=== PATIENT | male | born 1980 | race Caucasian/White ===

== ENCOUNTER 2020-09-12 18:26 | Emergency (ER) ==
[2020-09-12 19:03] VITALS: BP 162/91
== END 2020-09-12 20:37 | disposition left against medical advice (07) ==
LOC: ER 18:26
DX: Z53.21 Procedure and treatment not carried out due to patient leaving prior to being seen by health care provider (principal)

== ENCOUNTER 2020-09-17 18:32 | Emergency (ER) | payer SELFPAY ==
[2020-09-17 19:23] LABS: ABSOLUTE BASOPHILS # (AUTO) 0.1 10^3/uL (0.0-0.2); ABSOLUTE EOSINOPHILS # (AUTO) 0.3 10^3/uL (0.0-0.6); ABSOLUTE LYMPHOCYTES (AUTO) 2.2 10^3/uL (0.5-4.7); BASOPHILS % (AUTO) 0.6 % (0-2); EOSINOPHILS % (AUTO) 2.2 % (0-6); HEMATOCRIT 43.1 % (37.9-51.0); LYMPHOCYTES % (AUTO) 16.4 % (13-45); MEAN CORPUSCULAR HEMOGLOBIN 31.8 pg (27.0-33.4); MEAN CORPUSCULAR HGB CONC 34.8 g/dL (32.0-36.0); MEAN CORPUSCULAR VOLUME 92 fl (80-97); MONOCYTES % (AUTO) 7.5 % (3-13); PLATELET COUNT 360 10^3/uL (150-450); RED BLOOD COUNT 4.71 10^6/uL (4.35-5.55); RED CELL DISTRIBUTION WIDTH 13.6 % (11.5-14.0); SEGMENTED NEUTROPHILS % (AUTO) 73.3 % (42-78); TOTAL CELLS COUNTED % (AUTO) 100 %; VENOUS BLOOD BASE EXCESS 1.9 mmol/L; VENOUS BLOOD HCO3 27.6 mmol/L (20-32); VENOUS BLOOD PCO2 46.6 mmHg (35-63); VENOUS BLOOD PH 7.39 (7.30-7.42); WHITE BLOOD COUNT 13.6 10^3/uL (4.0-10.5)
[2020-09-17 19:40] LABS: ALBUMIN 4.3 g/dL (3.5-5.0); ALKALINE PHOSPHATASE 100 U/L (38-126); ANION GAP 10 (5-19); ASPARTATE AMINO TRANSFERASE 28 U/L (17-59); BILIRUBIN,DIRECT 0.4 mg/dL (0.0-0.4); BILIRUBIN,TOTAL 0.5 mg/dL (0.2-1.3); BLOOD UREA NITROGEN 19 mg/dL (7-20); CALCIUM 9.9 mg/dL (8.4-10.2); CARBON DIOXIDE 26 mmol/L (22-30); CHLORIDE 103 mmol/L (98-107); GLUCOSE 100 mg/dL (75-110); POTASSIUM 4.8 mmol/L (3.6-5.0); TOTAL PROTEIN 7.4 g/dL (6.3-8.2)
--- NOTE | 2020-09-17 19:45 | RADIOLOGY REPORT (SQ) ---
EXAM DESCRIPTION: CHEST SINGLE VIEW IMAGES COMPLETED DATE/TIME: 09/17/2020 7:32 pm REASON FOR STUDY: sob COMPARISON: None. EXAM PARAMETERS: NUMBER OF VIEWS: One view. TECHNIQUE: Single frontal radiographic view of the chest acquired. RADIATION DOSE: NA LIMITATIONS: None. FINDINGS: LUNGS AND PLEURA: Vague patchy parenchymal opacities scattered through the lungs. Low yaa g volumes. MEDIASTINUM AND HILAR STRUCTURES: No masses. Contour normal. HEART AND VASCULAR STRUCTURES: Heart normal in size. Normal vasculature. BONES: No acute findings. HARDWARE: None in the chest. OTHER: No other significant finding. IMPRESSION: Pneumonia which is concerning for covid 19. TECHNICAL DOCUMENTATION: JOB ID: [id number] 2010 [employer]- All Rights Reserved Reading location - IP/workstation name: [email or web address]
[2020-09-17] MEDS ORDERED: ALBUTEROL SULFATE 0.083% NEB 2.5 MG/3 ML AMPUL NEB ONE (20:07)
[2020-09-17] MEDS ORDERED: DEXAMETHASONE SOD PHOS INJ 10 MG/1 ML VIAL IV ONE (20:07)
[2020-09-17] MEDS ORDERED: AZITHROMYCIN INJ 500 MG VIAL IV ONE (20:09)
[2020-09-17] MEDS ORDERED: NORMAL SALINE 1000 ML 1,000 ML IV ONE (20:11)
--- NOTE | 2020-09-17 20:13 | ER Document Report ---
ED General - General Chief Complaint: Shortness Of Breath Stated Complaint: SHORT OF BREATH,COUGH Time Seen by Provider: 09/17/20 19:23 Mode of Arrival: Ambulatory Information source: Patient Notes: Patient is a 40-year-old male coming in today with cough and shortness of breath that started about 8 days ago. No fevers or chills. No body aches. No fatigue. No loss of smell or taste. He has no chronic medical problems. He does smoke cigarettes. - Related Data Allergies/Adverse Reactions: Penicillins Adverse Reaction (Verified 09/17/20 19:19) Past Medical History - Social History Smoking Status: Current Every Day Smoker Family History: Reviewed & Not Pertinent Patient has homicidal ideation: No Review of Systems - Review of Systems Notes: Constitutional: No fevers. No chills. EENT: No eye redness. No eye pain. No ear pain. No sore throat. Cardiovascular: No chest pain. No palpitations. Respiratory: Positive for cough and shortness of breath Gastrointestinal: No abdominal pain. No nausea, vomiting, or diarrhea. Genitourinary: Atraumatic. No lesions. No pain. No discharge. Musculoskeletal: Atraumatic. No swelling. No deformities. Skin: No rash or lesions. Lymphatic: No swollen lymph nodes. Neurologic: No headache. No syncope. Psychiatric: No suicidal or homicidal ideation. Physical Exam - Vital signs Vitals: Temp Pulse Resp BP Pulse Ox 98.5 F 114 H 20 157/97 H 96 09/17/20 18:42 09/17/20 18:42 09/17/20 18:42 09/17/20 18:42 09/17/20 18:42 - Notes Notes: General: Well-developed, well-nourished. In no acute distress. Non-toxic appearing. Cardiac: Well-perfused. Regular rate and rhythm. No murmurs, rubs, or gallops. Pulmonary: No respiratory distress. No cyanosis. Bilateral lung mas are slightly diminished without wheezes or rhonchi Abdominal: Non-distended. Non-rigid. Bowels sounds are present in all four quadrants. No guarding or rebound. HEENT: Head is atraumatic. Conjunctivae not reddened. No tearing. PERRL. EOMI. Orbits atraumatic. No periorbital swelling or erythema. Oropharynx is without erythema, swelling, or exudates. Neck: Supple. No adenopathy. No meningismus. Dermatologic: Warm with good turgor. No rash. Atraumatic. Chest: Atraumatic. No chest wall tenderness to palpation. Musculoskeletal: Moves all extremities well. No range of motion deficits. no muscular or joint tenderness. No paraspinal muscle tenderness. no midline spinal tenderness or step-off. Genitourinary: Examination deferred Neurologic: No gross neurologic deficits. Psychiatric: Normal mood. Course - Re-evaluation Re-evalutation: 09/17/20 22:09 Patient feeling better after breathing treatments. Told him I believe that he will feel even better after dexamethasone takes effect. Chest x-ray is concerning for possible Covid. We will start him on Zithromax at home as well as metered-dose albuterol inhaler, and Robitussin with codeine cough syrup. Recommended that he get some zinc and vitamin D and follow the directions on the bottle. In 3 days he will get the results of his coronavirus test. He does not work outside of the home. 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 Told him to quarantine until he knows the results of his Covid test. - Vital Signs Vital signs: Temp Pulse Resp BP Pulse Ox 98.5 F 114 H 22 H 125/100 H 95 09/17/20 18:42 09/17/20 18:42 09/17/20 21:03 09/17/20 21:03 09/17/20 21:03 - Laboratory Result Diagrams: 09/17/20 19:10 09/17/20 19:10 Laboratory results interpreted by me: 09/17/20 09/17/20 19:10 19:10 WBC 13.6 H Absolute Neuts (auto) 10.0 H ALT 56 H - Diagnostic Test Radiology reviewed: Reports reviewed Discharge - Discharge Clinical Impression: Person under investigation for COVID-19 Pneumonia Qualifiers: Pneumonia type: due to unspecified organism Laterality: bilateral Lung location: unspecified part of lung Qualified Code(s): J18.9 - Pneumonia, unspecified organism Condition: Good Disposition: HOME, SELF-CARE Instructions: COVID-19 Guidance for Persons Under Investigation, Pneumonia ([facility]) Additional Instructions: Recommend [id number] use of zinc and vitamin D. Use as directed on the bottle. Azithromycin 500 mg 1 tablet daily. Albuterol metered-dose inhaler 2 puffs every 4 hours as needed for chest tightness, shortness of breath, and/or cough. Robitussin with codeine cough syrup 1 teaspoon every 4 hours as needed for intractable cough. Follow-up with your primary care physician as needed. Return to the emergency department if your breathing is getting worse. Prescriptions: Guaifenesin/Codeine Phos [Robitussin-AC Syrup 59 ml] 5 ml PO Q4HP PRN #120 ml PRN Reason: Azithromycin 500 mg PO DAILY 5 Days #5 tablet Albuterol Sulfate [Proair HFA Inhalation Aerosol 8.5 gm MDI] 2 puff IH Q4H PRN #1 mdi PRN Reason:
[2020-09-17 22:59] VITALS: BP 137/90
== END 2020-09-17 23:09 | disposition home or self-care (01) ==
LOC: ER 18:32
DX: J18.9 Pneumonia, unspecified organism (principal); R06.02 Shortness of breath; R05 Cough; F17.210 Nicotine dependence, cigarettes, uncomplicated; Z20.828 Contact with and (suspected) exposure to other viral communicable diseases; Z88.0 Allergy status to penicillin
CPT/HCPCS: 94640; 99284; 96365; 96368; 36415; 87040; 83605; 85025; 87635; 80053; 82803; 71045; J7030; J0456; J1100; J7613; C9803

== ENCOUNTER 2020-09-24 13:15 | Inpatient (IN) | payer SELFPAY ==
--- NOTE | 2020-09-24 13:23 | ER Document Report ---
ED Medical Screen (RME) - General Chief Complaint: Shortness Of Breath Stated Complaint: SHORTNESS OF BREATH Time Seen by Provider: 09/24/20 13:17 Mode of Arrival: Ambulatory Information source: Patient Notes: 40-year-old old male presented to ED for continued back pain to his lungs with pneumonia. He states he is extremely short of breath for the last 3 or 4 weeks. He was seen here a week ago on the . He was diagnosed with pneumonia treated with azithromycin and prednisone. He he states he is getting much worse not better. He states he did have a note of a negative Covid test which I did check. We will repeat the blood chest x-ray and Covid test. The patient was evaluated during the global Covid 19 pandemic, and that diagnosis was suspected/considered upon their initial presentation. Their evaluation, treatment and testing was consistent with current guidelines for patients who present with complaints or symptoms that may be related to Covid 19. I have greeted and performed a rapid initial assessment of this patient. A comprehensive ED assessment and evaluation of the patient, analysis of test results and completion of medical decision making process will be conducted by an additional ED providers. - Related Data Allergies/Adverse Reactions: Penicillins Adverse Reaction (Verified 09/17/20 19:19) Physical Exam - Vital signs Vitals: Temp Pulse Resp BP Pulse Ox 98.0 F 93 18 185/91 H 97 09/24/20 13:21 09/24/20 13:21 09/24/20 13:21 09/24/20 13:21 09/24/20 13:21 Course - Vital Signs Vital signs: Temp Pulse Resp BP Pulse Ox 98.0 F 93 18 185/91 H 97 09/24/20 13:21 09/24/20 13:21 09/24/20 13:21 09/24/20 13:21 09/24/20 13:21
[2020-09-24] MEDS ORDERED: DEXAMETHASONE SOD PHOS INJ 10 MG/1 ML VIAL IV ONE (14:56)
--- NOTE | 2020-09-24 15:14 | ER Document Report ---
ED Respiratory Problem - General Chief Complaint: Congestion Stated Complaint: SHORTNESS OF BREATH Time Seen by Provider: 09/24/20 13:17 Mode of Arrival: Ambulatory Notes: CHIEF COMPLAINT: Worsening shortness of breath HPI: 40-year-old male who smokes a pack a day presenting for worsening shortness of breath over 3 weeks. States that he initially became ill with upper respiratory symptoms 3 weeks ago, 1 week ago came to the emergency department states he was told he had a chest x-ray that might have pneumonia was placed on Zithromax and inhalers at home with no improvement report significant dyspnea over the last 2 to 3 days with walking or movement. No chest pain. No definitive fevers. ROS: See HPI - all other systems were reviewed and are otherwise negative Constitutional: no fever Eyes: no drainage, no blurred vision ENT: no runny nose, no sore throat Cardiovascular: no chest pain Resp: + SOB, + cough GI: no vomiting, no diarrhea, no abdominal pain : no dysuria Integumentary: no rash Allergy: no hives Musculoskeletal: no extremity pain or swelling Neurological: no numbness/tingling, no weakness MEDICATIONS: I agree with the patient medications as charted by the RN. ALLERGIES: I agree with the allergies as charted by the RN. PAST MEDICAL HISTORY/PAST SURGICAL HISTORY: Reviewed and agree as charted by RN. SOCIAL HISTORY: Reviewed and agree as charted by RN. FAMILY HISTORY: No significant familial comorbid conditions directly related to patient complaint EXAM: Reviewed vital signs as charted by RN. CONSTITUTIONAL: Alert and oriented and responds appropriately to questions. Well-appearing; well-nourished HEAD: Normocephalic; atraumatic EYES: PERRL; Conjunctivae clear, sclerae non-icteric ENT: normal nose; no rhinorrhea; moist mucous membranes; pharynx without lesions noted, no uvula edema or deviation, no tonsillar hypertrophy, phonation normal NECK: Supple without meningismus; non-tender; no cervical lymphadenopathy, no masses CARD: RRR; no murmurs, no clicks, no rubs, no gallops; symmetric distal pulses RESP: Normal chest excursion without splinting or tachypnea; breath sounds clear and equal bilaterally although decreased bilaterally; no wheezes, no rhonchi, no rales, pulse oximetry 96% on room air not hypoxic although patient becomes fairly dyspneic with simple speaking or with walking very short distances ABD/GI: Normal bowel sounds; non-distended; soft, non-tender, no rebound, no guarding; no palpable organomegaly or masses. BACK: The back appears normal and is non-tender to palpation, there is no CVA tenderness EXT: Normal ROM in all joints; non-tender to palpation; no cyanosis, no effusions, no edema SKIN: Normal color for age and race; warm; dry; good turgor; no acute lesions noted NEURO: Moves all extremities equally; Motor and sensory function intact PSYCH: The patient's mood and manner are appropriate. Grooming and personal hygiene are appropriate. MDM: EKG normal sinus rhythm with a ventricular rate of 81, no other ectopy normal EKG interpreted by emergency department physician. ME 172 QT 340, QTc 395. 40-year-old male seen 1 week ago in the emergency department diagnosed with possible Covid pneumonia Covid test 3 days later was negative but patient had a right upper lobe pneumonia. Was placed on Zithromax and steroids and albuterol with no improvement becomes markedly dyspneic with walking. On my review of his chest CT he appears to have diffuse interstitial disease. Awaiting lab work he will likely need admission - Related Data Allergies/Adverse Reactions: Penicillins Adverse Reaction (Verified 09/24/20 14:25) Past Medical History - General Information source: Patient - Social History Smoking Status: Current Every Day Smoker Frequency of alcohol use: Occasional Family History: Reviewed & Not Pertinent Patient has homicidal ideation: No Physical Exam - Vital signs Vitals: Temp Pulse Resp BP Pulse Ox 98.0 F 93 18 185/91 H 97 09/24/20 13:21 09/24/20 13:21 09/24/20 13:21 09/24/20 13:21 09/24/20 13:21 Course - Re-evaluation Re-evalutation: 09/24/20 16:[address] Ellington, hospitalist. case discussed, start Levaquin, will admit - Vital Signs Vital signs: Temp Pulse Resp BP Pulse Ox 98.0 F 93 18 185/91 H 97 09/24/20 13:21 09/24/20 13:21 09/24/20 13:21 09/24/20 13:21 09/24/20 13:21 - Laboratory Result Diagrams: 09/24/20 14:50 09/24/20 14:50 Laboratory results interpreted by me: 09/24/20 09/24/20 09/24/20 14:50 14:50 14:50 WBC 11.0 H ABG pO2 Glucose 120 H Urine Protein 30 H Urine Blood SMALL H 09/24/20 16:05 WBC ABG pO2 101.9 H Glucose Urine Protein Urine Blood Discharge - Discharge Clinical Impression: Pneumonia due to COVID-19 virus Dyspnea Qualifiers: Dyspnea type: shortness of breath Qualified Code(s): R06.02 - Shortness of breath; R06.00 - Dyspnea, unspecified; R06.01 - Orthopnea Condition: Fair Disposition: ADMITTED INPATIENT Admitting Provider: Rakel (Hospitalist) Unit Admitted: Medical Floor
[2020-09-24 15:19] LABS: ABSOLUTE BASOPHILS # (AUTO) 0.1 10^3/uL (0.0-0.2); ABSOLUTE EOSINOPHILS # (AUTO) 0.6 10^3/uL (0.0-0.6); ABSOLUTE LYMPHOCYTES (AUTO) 2.5 10^3/uL (0.5-4.7); ABSOLUTE MONOCYTES (AUTO) 0.7 10^3/uL (0.1-1.4); ABSOLUTE NEUT (AUTO) 7.1 10^3/uL (1.7-8.2); BASOPHILS % (AUTO) 1.4 % (0-2); EOSINOPHILS % (AUTO) 5.8 % (0-6); HEMATOCRIT 41.1 % (37.9-51.0); HEMOGLOBIN 14.6 g/dL (13.5-17.0); LYMPHOCYTES % (AUTO) 22.3 % (13-45); MEAN CORPUSCULAR HEMOGLOBIN 32.5 pg (27.0-33.4); MEAN CORPUSCULAR HGB CONC 35.5 g/dL (32.0-36.0); MEAN CORPUSCULAR VOLUME 92 fl (80-97); MONOCYTES % (AUTO) 6.3 % (3-13); PLATELET COUNT 376 10^3/uL (150-450); RED BLOOD COUNT 4.48 10^6/uL (4.35-5.55); RED CELL DISTRIBUTION WIDTH 13.6 % (11.5-14.0); SEGMENTED NEUTROPHILS % (AUTO) 64.2 % (42-78); TOTAL CELLS COUNTED % (AUTO) 100 %
[2020-09-24 15:37] LABS: ALBUMIN 3.7 g/dL (3.5-5.0); ALKALINE PHOSPHATASE 100 U/L (38-126); ANION GAP 9 (5-19); ASPARTATE AMINO TRANSFERASE 26 U/L (17-59); BILIRUBIN,DIRECT 0.2 mg/dL (0.0-0.4); BILIRUBIN,TOTAL 0.4 mg/dL (0.2-1.3); BLOOD UREA NITROGEN 12 mg/dL (7-20); CALCIUM 9.3 mg/dL (8.4-10.2); CARBON DIOXIDE 26 mmol/L (22-30); CHLORIDE 104 mmol/L (98-107); GLUCOSE 120 mg/dL (75-110); POTASSIUM 4.5 mmol/L (3.6-5.0); TOTAL PROTEIN 6.5 g/dL (6.3-8.2)
[2020-09-24 15:39] LABS: APPEARANCE,URINE CLEAR; BILIRUBIN,URINE NEGATIVE (NEGATIVE); COLOR,URINE YELLOW; GLUCOSE, URINE NEGATIVE (NEGATIVE); KETONES,URINE NEGATIVE (NEGATIVE); LEUKOCYTE ESTERASE,URINE NEGATIVE (NEGATIVE); NITRITE,URINE NEGATIVE (NEGATIVE); PROTEIN,URINE 30 mg/dL (NEGATIVE); UROBILINOGEN,URINE NEGATIVE mg/dL (<2.0)
[2020-09-24 15:49] LABS: NT PRO BNP 62 pg/mL (<125); TROPONIN I < 0.012 ng/mL
--- NOTE | 2020-09-24 15:49 | RADIOLOGY REPORT (SQ) ---
EXAM DESCRIPTION: CTA CHEST IMAGES COMPLETED DATE/TIME: 09/24/2020 2:10 pm REASON FOR STUDY: sob. COMPARISON: Chest radiograph same date. Chest radiograph 09/17/2020. TECHNIQUE: CT scan of the chest performed using helical scanning technique with dynamic intravenous contrast injection. Images reviewed with lung, soft tissue and bone windows. Reconstructed coronal and sagittal MPR images reviewed. Additional 3 dimensional post-processing performed to develop Maximal Intensity Projection images (AZ P). All images stored on PACS. All CT scanners at this facility use dose modulation, iterative reconstruction, and/or weight based d osing when appropriate to reduce radiation dose to as low as reasonably achievable (ALARA). [facility]: Dose Right [facility]: CareDose [facility]: Dose Right [facility]: Teradose 4D [facility]: CrowdPlat CONTRAST TYPE AND DOSE: contrast/concentration: Isovue 350.00 mmol/ml; Total Contrast Delivered: 71. 0 ml; Total Saline Delivered: 66.0 ml Contrast bolus optimized for the pulmonary arteries. Not diagnostic for the aorta. RENAL FUNCTION: GFR > 60. RADIATION DOSE: CT Rad equipment meets quality standard of care and radiation dose reduction techniq ues were employed. CTDIvol: 13.2 - 23.8 mGy. DLP: 833 mGy-cm. . LIMITATIONS: None. FINDINGS: LUNGS AND PLEURA: The trachea has normal caliber and appearance. There is patchy ground-g lass attenuation in both lungs both upper, lower, and right middle lobe. No pleural effusion or pneu mothorax. AORTA AND GREAT VESSELS: No aneurysm. Contrast bolus not optimized for the aorta. HEART: No pericardial effusion. No significant coronary artery calcifications. PULMONARY ARTERIES: No emboli visualized in the main pulmonary arteries or the segmental branches. HILAR AND MEDIASTINAL STRUCTURES: Prominent bilateral hilar lymph nodes, on the right measuring up to 1.2 x 0.9 cm and on the left measuring up to 2 x 1.1 cm. Small mediastinal lymph nodes are not enla rged by CT criteria. HARDWARE: None in the chest. UPPER ABDOMEN: Mild hepatic steatosis. THYROID AND OTHER SOFT TISSUES: No masses. No adenopathy. BONES: No acute or significant finding. 3D MIPS: Confirm above findings. OTHER: No other significant finding. IMPRESSION: 1. Multifocal ground-glass attenuation throughout both lungs, suspicious for multifocal pneumonia. C ommonly reported imaging features of COVID-19 pneumonia are present. Other processes such as influe nza pneumonia and organizing pneumonia, as can be seen with drug toxicity and connective tissue disea se, can cause a similar imaging pattern. 2. No pulmonary embolism. COMMENT: Quality ID # [id number]: Final reports with documentation of one or more dose reduction techniques (e.g., Automated exposure control, adjustment of the mA and/or kV according to patient size, use of iterative reconstruction technique) TECHNICAL DOCUMENTATION: JOB ID: [id number] 2010 [employer]- All Rights Reserved Reading location - IP/workstation name: [email or web address]
--- NOTE | 2020-09-24 16:04 | RADIOLOGY REPORT (SQ) ---
EXAM DESCRIPTION: CHEST SINGLE VIEW IMAGES COMPLETED DATE/TIME: 09/24/2020 3:38 pm REASON FOR STUDY: SOB COMPARISON: 09/17/2020. EXAM PARAMETERS: NUMBER OF VIEWS: One view. TECHNIQUE: Single frontal radiographic view of the chest acquired. RADIATION DOSE: NA LIMITATIONS: None. FINDINGS: LUNGS AND PLEURA: Hazy bilateral airspace disease, slightly more prominent on the right. MEDIASTINUM AND HILAR STRUCTURES: No masses. Contour normal. HEART AND VASCULAR STRUCTURES: Heart normal in size. Normal vasculature. BONES: No acute findings. HARDWARE: None in the chest. OTHER: No other significant finding. IMPRESSION: BILATERAL AIRSPACE DISEASE. LITTLE CHANGE FROM PRIOR STUDY. TECHNICAL DOCUMENTATION: JOB ID: [id number] 2010 [employer]- All Rights Reserved Reading location - IP/workstation name: [email or web address]
[2020-09-24 16:19] LABS: ARTERIAL BLOOD BASE EXCESS -1.9 mmol/L; ARTERIAL BLOOD FIO2 2L; ARTERIAL BLOOD H2CO3 1.08 mmol/L (1.05-1.35); ARTERIAL BLOOD HCO3 22.2 mmol/L (20-24); ARTERIAL BLOOD O2 SATURATION 97.7 % (94-98); ARTERIAL BLOOD PH 7.41 (7.35-7.45); ARTERIAL BLOOD PO2 101.9 mmHg (80-100); ARTERIAL BLOOD TOTAL CO2 23.3 mmol/L (23-27)
[2020-09-24] MEDS ORDERED: LEVOFLOXACIN 750 MG/D5W RTU 750 MG/150 ML RTUPB IV ONE (16:34)
[2020-09-24] MEDS ORDERED: ONDANSETRON 4 MG TAB.RAPDIS PO PRN (17:11)
[2020-09-24 17:40] LABS: C-REACTIVE PROTEIN 35.9 mg/L (<10.0)
--- NOTE | 2020-09-24 17:58 | PDOC CONSULTATION ---
Consultation Consult Date: 09/24/20 Attending physician:: WILLIAM MARION Provider Consulted: WILLIAM MARION Consult reason:: Cough History of Present Illness Admission Date/PCP: 09/24/20 17:41 Patient complains of: cough History of Present Illness: JUVENTINO CROCKETT is a 40 year old male, history of HTN not on medications, current smoker who came in the ED today due to cough. The patient has been experiencing cough for a 3 weeks now with minimal phlegm and minimal body malaise. He went to [facility] 1 week prior and was tested for COVID which was negative. CXR showed Pneumonia. He was prescribed azithro, robitussin and was given 1 dose of steroids and was sent home. He continued to have bothersome cough with minimal improvement hence he came back to the ED. In the ED, VS 148/88. HR 95, O2 sat 98%. Initially started on O2 at 2L. CT chest showed bilateral ground glass opacities concerning for COVID pneumonia, no pulm embolism CBC WBC mildly elevated 11 and CMP were normal. trop negative. He was trialled off O2 and continued to saturate 96% on RA even with walking. The patient wants to go home and based on my assessment he is stable to be discharged as he is not requiring oxygen support. He will be discharged on Levaquin, prednisone, tessalon, Vitamin c, D and zinc. He was advised to come back to the ED if he becomes more short of breath Past Medical History Cardiac Medical History: Reports: Hypertension Pulmonary Medical History: Reports: None EENT Medical History: Reports: None Neurological Medical History: Reports: None Endocrine Medical History: Reports: None Renal/ Medical History: Reports: None Malignancy Medical History: Reports: None GI Medical History: Reports: None Musculoskeltal Medical History: Reports: None Skin Medical History: Reports: None Psychiatric Medical History: Reports: Tobacco Dependency Hematology: Reports: None Infectious Medical History: Reports: None Past Surgical History Past Surgical History: Reports: None Social History Information Source: Patient Lives with: Friend Smoking Status: Current Every Day Smoker Family History Family History: DM, Hypertension Parental Family History Reviewed: Yes Children Family History Reviewed: Yes Sibling(s) Family History Reviewed.: Yes Medication/Allergy Home Medications: Albuterol Sulfate [Proair HFA Inhalation Aerosol 8.5 gm MDI] 2 puff IH Q4HP PRN 10/27/20 Ascorbic Acid [Vitamin C 500 mg Tablet] 500 mg PO BID 30 Days #30 tablet 09/24/20 Aspirin [Aspirin 81 mg Chewable Tablet] 81 mg PO DAILY 30 Days #30 pkg 09/24/20 Benzonatate [Tessalon Perles 100 mg Capsule] 100 mg PO Q8HP PRN 14 Days #40 capsule 09/24/20 Cholecalciferol (Vitamin D3) [Vitamin D3 1000 Unit Tablet] 400 unit PO DAILY 30 Days #30 tablet 09/24/20 Levofloxacin [Levaquin 750 mg Tablet] 750 mg PO DAILY #10 tab 09/24/20 Prednisone [Deltasone 20 mg Tablet] 40 mg PO DAILY 7 Days #14 tablet 09/24/20 Zinc Sulfate [Zinc-220 Capsule] 220 mg PO DAILY 30 Days #30 capsule 09/24/20 Allergies/Adverse Reactions: Penicillins Adverse Reaction (Verified 09/24/20 14:25) Review of Systems Constitutional: PRESENT: fatigue, weakness Eyes: ABSENT: visual disturbances Ears: ABSENT: hearing changes Nose, Mouth, and Throat: ABSENT: mouth pain Cardiovascular: ABSENT: chest pain, dyspnea on exertion, edema, orthropnea, palpitations Respiratory: PRESENT: cough Gastrointestinal: ABSENT: abdominal pain, diarrhea Genitourinary: ABSENT: dysuria Integumentary: ABSENT: diaphoresis, lesions Neurological: ABSENT: abnormal movements, abnormal speech, memory loss Psychiatric: ABSENT: hallucinations Physical Exam Vital Signs: Temp Pulse Resp BP Pulse Ox 98.0 F 93 14 154/106 H 97 09/24/20 13:21 09/24/20 13:21 09/24/20 17:01 09/24/20 17:01 09/24/20 17:01 Intake & Output 09/23/20 09/24/20 09/25/20 06:59 06:59 06:59 Weight 113.1 kg General appearance: PRESENT: no acute distress, cooperative Head exam: PRESENT: atraumatic, normocephalic Eye exam: PRESENT: EOMI, PERRLA Mouth exam: PRESENT: moist Neck exam: PRESENT: full ROM Respiratory exam: PRESENT: clear to auscultation kam, symmetrical. ABSENT: rhonchi, tachypnea Cardiovascular exam: PRESENT: RRR, +S1, +S2 Pulses: PRESENT: +2 pedal pulses bilateral GI/Abdominal exam: PRESENT: normal bowel sounds, soft. ABSENT: rebound, tenderness Extremities exam: PRESENT: full ROM. ABSENT: +2 edema Musculoskeletal exam: PRESENT: full ROM Neurological exam: PRESENT: alert, awake, oriented to person, oriented to place, oriented to time, oriented to situation Psychiatric exam: PRESENT: normal mood Skin exam: PRESENT: normal color Results Laboratory Results: 09/24/20 14:50 09/24/20 14:50 09/24/20 09/24/20 09/24/20 14:50 14:50 14:50 WBC 11.0 H RBC 4.48 Hgb 14.6 Hct 41.1 MCV 92 MCH 32.5 MCHC 35.5 RDW 13.6 Plt Count 376 Seg Neutrophils % 64.2 Carbonic Acid HCO3/H2CO3 Ratio ABG pH ABG pCO2 ABG pO2 ABG HCO3 ABG O2 Saturation ABG Base Excess FiO2 Sodium 138.6 Potassium 4.5 Chloride 104 Carbon Dioxide 26 Anion Gap 9 BUN 12 Creatinine 0.83 Est GFR ( Amer) > 60 Glucose 120 H Calcium 9.3 Total Bilirubin 0.4 AST 26 Alkaline Phosphatase 100 Total Protein 6.5 Albumin 3.7 Urine Color YELLOW Urine Appearance CLEAR Urine pH 5.0 Ur Specific Wheeler 1.030 Urine Protein 30 H Urine Glucose (UA) NEGATIVE Urine Ketones NEGATIVE Urine Blood SMALL H Urine Nitrite NEGATIVE Ur Leukocyte Esterase NEGATIVE Urine WBC (Auto) 1 Urine RBC (Auto) 8 09/24/20 16:05 WBC RBC Hgb Hct MCV MCH MCHC RDW Plt Count Seg Neutrophils % Carbonic Acid 1.08 HCO3/H2CO3 Ratio 20:1 ABG pH 7.41 ABG pCO2 36.0 ABG pO2 101.9 H ABG HCO3 22.2 ABG O2 Saturation 97.7 ABG Base Excess -1.9 FiO2 2L Sodium Potassium Chloride Carbon Dioxide Anion Gap BUN Creatinine Est GFR ( Amer) Glucose Calcium Total Bilirubin AST Alkaline Phosphatase Total Protein Albumin Urine Color Urine Appearance Urine pH Ur Specific Wheeler Urine Protein Urine Glucose (UA) Urine Ketones Urine Blood Urine Nitrite Ur Leukocyte Esterase Urine WBC (Auto) Urine RBC (Auto) 09/24/20 14:50 Troponin I < 0.012 NT-Pro-B Natriuret Pep 62 Impressions: Chest X-Ray 09/24/20 00:00 IMPRESSION: BILATERAL AIRSPACE DISEASE. LITTLE CHANGE FROM PRIOR STUDY. Chest/Abdomen CTA 09/24/20 14:54 IMPRESSION: 1. Multifocal ground-glass attenuation throughout both lungs, suspicious for multifocal pneumonia. Commonly reported imaging features of COVID-19 pneumonia are present. Other processes such as influenza pneumonia and organizing pneumonia, as can be seen with drug toxicity and connective tissue disease, can cause a similar imaging pattern. 2. No pulmonary embolism. Assessment and Plan - Diagnosis (2) Pneumonia Qualifiers: Pneumonia type: due to unspecified organism Laterality: bilateral Lung location: unspecified part of lung Qualified Code(s): J18.9 - Pneumonia, unspecified organism Is this a current diagnosis for this admission?: Yes Plan: - has been coughing for 3 weeks not improved with azithro - initially COVID negative 1 week prior - CT chest showed bilateral ground glass opacities concerning for COVID - BP 148/88, Hr 78, O2 sat 97% on room air - main concern is cough, he denies any SOB - He is stable enough to be discharged - COVID test is done and is pending. We will call him with results - Plan to send him home on Levaquin 750 mg daily for 7 days - prednsione 40 mg daily for 7 days - tessalon and robitussin for cough -advised to isolate until result is back. wear mask and wash hands - follow up with Dr. Marquez -a dvised to come back if he becomes SOB or febrile - Time Time Spent with patient: 25-34 minutes Smoking Cessation Education: 3 to 10 minutes Medications reviewed and adjusted accordingly: Yes Anticipated Discharge Disposition: Home, Self Care Anticipated Discharge Timeframe: within 24 hours
[2020-09-24] MEDS ORDERED: ASCORBIC ACID 500 MG TABLET PO SCH (18:00)
--- NOTE | 2020-09-24 18:06 | EKG REPORT ---
SEVERITY:- NORMAL ECG - SINUS RHYTHM : Confirmed by: Lalo Troy MD 24-Sep-2020 18:05:07
[2020-09-24 18:54] VITALS: BP 165/103
--- NOTE | 2020-09-24 20:29 | PDOC DISCHARGE SUMMARY ---
Impression - Admit/DC Date/PCP Admission Date/Primary Care Provider: 09/24/20 17:41 Discharge Date: 09/24/20 - Discharge Diagnosis (1) Bilateral pneumonia Is this a current diagnosis for this admission?: Yes (2) Pneumonia Is this a current diagnosis for this admission?: Yes - Additional Information Resuscitation Status: Full Code Discharge Diet: As Tolerated Discharge Activity: Activity As Tolerated Referrals: MONA PONCE MD [COMMUNITY BASED STAFF] - Prescriptions: Aspirin [Aspirin 81 mg Chewable Tablet] 81 mg PO DAILY 30 Days #30 pkg Prednisone [Deltasone 20 mg Tablet] 40 mg PO DAILY 7 Days #14 tablet Levofloxacin [Levaquin 750 mg Tablet] 750 mg PO DAILY #10 tab Benzonatate [Tessalon Perles 100 mg Capsule] 100 mg PO Q8HP PRN 14 Days #40 capsule PRN Reason: Ascorbic Acid [Vitamin C 500 mg Tablet] 500 mg PO BID 30 Days #30 tablet Cholecalciferol (Vitamin D3) [Vitamin D3 1000 Unit Tablet] 400 unit PO DAILY 30 Days #30 tablet Zinc Sulfate [Zinc-220 Capsule] 220 mg PO DAILY 30 Days #30 capsule Home Medications: Albuterol Sulfate [Proair HFA Inhalation Aerosol 8.5 gm MDI] 2 puff IH Q4HP PRN 09/24/20 Ascorbic Acid [Vitamin C 500 mg Tablet] 500 mg PO BID 30 Days #30 tablet 09/24/20 Aspirin [Aspirin 81 mg Chewable Tablet] 81 mg PO DAILY 30 Days #30 pkg 09/24/20 Benzonatate [Tessalon Perles 100 mg Capsule] 100 mg PO Q8HP PRN 14 Days #40 capsule 09/24/20 Cholecalciferol (Vitamin D3) [Vitamin D3 1000 Unit Tablet] 400 unit PO DAILY 30 Days #30 tablet 09/24/20 Levofloxacin [Levaquin 750 mg Tablet] 750 mg PO DAILY #10 tab 09/24/20 Prednisone [Deltasone 20 mg Tablet] 40 mg PO DAILY 7 Days #14 tablet 09/24/20 Zinc Sulfate [Zinc-220 Capsule] 220 mg PO DAILY 30 Days #30 capsule 09/24/20 History of Present Illiness History of Present Illness: JUVENTINO CROCKETT is a 40 year old male, history of HTN not on medications, current smoker who came in the ED today due to cough. The patient has been experiencing cough for a 3 weeks now with minimal phlegm and minimal body malaise. He went to [facility] ED 1 week prior and was tested for COVID which was negative. CXR showed Pneumonia. He was prescribed azithro, robitussin and was given 1 dose of steroids and was sent home. He continued to have bothersome cough with minimal improvement hence he came back to the ED. In the ED, VS 148/88. HR 95, O2 sat 98%. Initially started on O2 at 2L. CT chest showed bilateral ground glass opacities concerning for COVID pneumonia, no pulm embolism CBC WBC mildly elevated 11 and CMP were normal. trop negative. He was trialled off O2 and continued to saturate 96% on RA even with walking. The patient wants to go home and based on my assessment he is stable to be discharged as he is not requiring oxygen support. He will be discharged on Levaquin, prednisone, tessalon, Vitamin c, D and zinc. He was advised to come back to the ED if he becomes more short of breath Hospital Course Hospital Course: He was trialled off O2 and continued to saturate 96% on RA even with walking. The patient wants to go home and based on my assessment he is stable to be discharged as he is not requiring oxygen support. He will be discharged on Levaquin, prednisone, tessalon, Vitamin c, D and zinc. He was advised to come back to the ED if he becomes more short of breath Physical Exam Vital Signs: Temp Pulse Resp BP Pulse Ox 98.7 F 93 16 165/103 H 91 L 09/24/20 18:48 09/24/20 13:21 09/24/20 18:48 09/24/20 18:48 09/24/20 18:48 Intake & Output 09/23/20 09/24/20 09/25/20 06:59 06:59 06:59 Intake Total 150 Balance 150 Weight 113.1 kg General appearance: PRESENT: no acute distress, cooperative Head exam: PRESENT: atraumatic, normocephalic Eye exam: PRESENT: EOMI, PERRLA Mouth exam: PRESENT: moist Neck exam: PRESENT: full ROM Respiratory exam: PRESENT: crackles, symmetrical, unlabored Cardiovascular exam: PRESENT: RRR, +S1, +S2 GI/Abdominal exam: PRESENT: normal bowel sounds, rebound, soft, tenderness Extremities exam: PRESENT: full ROM Musculoskeletal exam: PRESENT: full ROM Neurological exam: PRESENT: alert, awake, oriented to person, oriented to place, oriented to time, oriented to situation Skin exam: PRESENT: normal color Results Laboratory Results: WBC 11.0 10^3/uL (4.0-10.5) H 09/24/20 14:50 RBC 4.48 10^6/uL (4.35-5.55) 09/24/20 14:50 Hgb 14.6 g/dL (13.5-17.0) 09/24/20 14:50 Hct 41.1 % (37.9-51.0) 09/24/20 14:50 MCV 92 fl (80-97) 09/24/20 14:50 MCH 32.5 pg (27.0-33.4) 09/24/20 14:50 MCHC 35.5 g/dL (32.0-36.0) 09/24/20 14:50 RDW 13.6 % (11.5-14.0) 09/24/20 14:50 Plt Count 376 10^3/uL (150-450) 09/24/20 14:50 Lymph % (Auto) 22.3 % (13-45) 09/24/20 14:50 Graham % (Auto) 6.3 % (3-13) 09/24/20 14:50 Eos % (Auto) 5.8 % (0-6) 09/24/20 14:50 Baso % (Auto) 1.4 % (0-2) 09/24/20 14:50 Absolute Neuts (auto) 7.1 10^3/uL (1.7-8.2) 09/24/20 14:50 Absolute Lymphs (auto) 2.5 10^3/uL (0.5-4.7) 09/24/20 14:50 Absolute Monos (auto) 0.7 10^3/uL (0.1-1.4) 09/24/20 14:50 Absolute Eos (auto) 0.6 10^3/uL (0.0-0.6) 09/24/20 14:50 Absolute Basos (auto) 0.1 10^3/uL (0.0-0.2) 09/24/20 14:50 Seg Neutrophils % 64.2 % (42-78) 09/24/20 14:50 D-Dimer 0.33 ug/mL (0.00-0.50) 09/24/20 14:50 Carbonic Acid 1.08 mmol/L (1.05-1.35) 09/24/20 16:05 HCO3/H2CO3 Ratio 20:1 09/24/20 16:05 ABG pH 7.41 (7.35-7.45) 09/24/20 16:05 ABG pCO2 36.0 mmHg (35-45) 09/24/20 16:05 ABG pO2 101.9 mmHg (80-100) H 09/24/20 16:05 ABG HCO3 22.2 mmol/L (20-24) 09/24/20 16:05 ABG Total CO2 23.3 mmol/L (23-27) 09/24/20 16:05 ABG O2 Saturation 97.7 % (94-98) 09/24/20 16:05 ABG Base Excess -1.9 mmol/L 09/24/20 16:05 FiO2 2L 09/24/20 16:05 Sodium 138.6 mmol/L (137-145) 09/24/20 14:50 Potassium 4.5 mmol/L (3.6-5.0) 09/24/20 14:50 Chloride 104 mmol/L (98-107) 09/24/20 14:50 Carbon Dioxide 26 mmol/L (22-30) 09/24/20 14:50 Anion Gap 9 (5-19) 09/24/20 14:50 BUN 12 mg/dL (7-20) 09/24/20 14:50 Creatinine 0.83 mg/dL (0.52-1.25) 09/24/20 14:50 Est GFR ( Amer) > 60 (>60) 09/24/20 14:50 Est GFR (MDRD) Non-Af > 60 (>60) 09/24/20 14:50 Glucose 120 mg/dL (75-110) H 09/24/20 14:50 Calcium 9.3 mg/dL (8.4-10.2) 09/24/20 14:50 Ferritin 92.00 ng/mL (17.9-464.0) 09/24/20 14:50 Total Bilirubin 0.4 mg/dL (0.2-1.3) 09/24/20 14:50 Direct Bilirubin 0.2 mg/dL (0.0-0.4) 09/24/20 14:50 Neonat Total Bilirubin Not Reportable 09/24/20 14:50 Neonat Direct Bilirubin Not Reportable 09/24/20 14:50 Neonat Indirect Bili Not Reportable 09/24/20 14:50 AST 26 U/L (17-59) 09/24/20 14:50 ALT 42 U/L (<50) 09/24/20 14:50 Alkaline Phosphatase 100 U/L (38-126) 09/24/20 14:50 Lactate Dehydrogenase 373 U/L (120-246) H 09/24/20 14:50 Troponin I < 0.012 ng/mL 09/24/20 14:50 C-Reactive Protein 35.9 mg/L (<10.0) H 09/24/20 14:50 NT-Pro-B Natriuret Pep 62 pg/mL (<125) 09/24/20 14:50 Total Protein 6.5 g/dL (6.3-8.2) 09/24/20 14:50 Albumin 3.7 g/dL (3.5-5.0) 09/24/20 14:50 Urine Color YELLOW 09/24/20 14:50 Urine Appearance CLEAR 09/24/20 14:50 Urine pH 5.0 (5.0-9.0) 09/24/20 14:50 Ur Specific [place] 1.030 09/24/20 14:50 Urine Protein 30 mg/dL (NEGATIVE) H 09/24/20 14:50 Urine Glucose (UA) NEGATIVE mg/dL (NEGATIVE) 09/24/20 14:50 Urine Ketones NEGATIVE mg/dL (NEGATIVE) 09/24/20 14:50 Urine Blood SMALL (NEGATIVE) H 09/24/20 14:50 Urine Nitrite NEGATIVE (NEGATIVE) 09/24/20 14:50 Urine Bilirubin NEGATIVE (NEGATIVE) 09/24/20 14:50 Urine Urobilinogen NEGATIVE mg/dL (<2.0) 09/24/20 14:50 Ur Leukocyte Esterase NEGATIVE (NEGATIVE) 09/24/20 14:50 Urine WBC (Auto) 1 /HPF 09/24/20 14:50 Urine RBC (Auto) 8 /HPF 09/24/20 14:50 U Hyaline Cast (Auto) 1 /LPF 09/24/20 14:50 Squamous Epi Cells Auto 2 /HPF 09/24/20 14:50 Urine Mucus (Auto) RARE /LPF 09/24/20 14:50 Urine Ascorbic Acid NEGATIVE (NEGATIVE) 09/24/20 14:50 COVID-19 Source See comment 09/24/20 15:25 09/24/20 14:50 Troponin I < 0.012 NT-Pro-B Natriuret Pep 62 Impressions: Chest X-Ray 09/24/20 00:00 IMPRESSION: BILATERAL AIRSPACE DISEASE. LITTLE CHANGE FROM PRIOR STUDY. Chest/Abdomen CTA 09/24/20 14:54 IMPRESSION: 1. Multifocal ground-glass attenuation throughout both lungs, suspicious for multifocal pneumonia. Commonly reported imaging features of COVID-19 pneumonia are present. Other processes such as influenza pneumonia and organizing pneumonia, as can be seen with drug toxicity and connective tissue disease, can cause a similar imaging pattern. 2. No pulmonary embolism. Plan Health Concerns: -Patient was advised to isolate until Covid test result is back. -Advised to take Levaquin for pneumonia for 7 more days. -Advised to return to the ED if he becomes short of breath or develops fever. Plan of Treatment: Continue antibiotics and prednisone for 7 days Follow-up with your primary care physician outpatient Time Spent: Less than 30 Minutes Stroke Is this a Stroke Patient?: No Acute Heart Failure Is this a Heart Failure Patient?: No
[2020-09-25] MEDS ORDERED: LEVOFLOXACIN 750 MG/D5W RTU 750 MG/150 ML RTUPB IV SCH (10:00)
[2020-09-25] MEDS ORDERED: AZITHROMYCIN 250 MG TABLET PO SCH (10:00)
[2020-09-25] MEDS ORDERED: ENOXAPARIN SODIUM INJ 40 MG/0.4 ML DISP.SYRIN SUBCUT SCH (10:00)
[2020-09-25] MEDS ORDERED: DEXAMETHASONE SOD PHOS INJ 10 MG/1 ML VIAL IV SCH (10:00)
[2020-09-25] MEDS ORDERED: ZINC SULFATE 220 MG CAPSULE PO SCH (10:00)
[2020-09-25] MEDS ORDERED: CHOLECALCIFEROL (D3) 1,000 UNIT (25 MCG) TABLET PO SCH (10:00)
== END 2020-09-24 18:55 | disposition home or self-care (01) | DRG 195 ==
LOC: ER 13:15 → EH 17:41
PROVIDERS: ADMIT Internal Medicine; ATTEND Internal Medicine
DX: J18.9 Pneumonia, unspecified organism (principal); I10 Essential (primary) hypertension; F17.210 Nicotine dependence, cigarettes, uncomplicated; Z20.828 Contact with and (suspected) exposure to other viral communicable diseases; Z79.899 Other long term (current) drug therapy; Z79.82 Long term (current) use of aspirin; Z79.52 Long term (current) use of systemic steroids; Z82.49 Family history of ischemic heart disease and other diseases of the circulatory system; Z88.0 Allergy status to penicillin
CPT/HCPCS: 36415; 71045; 71275; 80053; 81001; 82728; 82803; 83615; 83880; 84484; 85025; 85379; 86140; 87040; 87635; 93005; 93010; 96365; 96366; 96375; 99285; C9803; J1100; J1956

== ENCOUNTER 2020-10-23 15:58 | Emergency (ER) | payer SELFPAY ==
--- NOTE | 2020-10-23 16:30 | ER Document Report ---
ED Medical Screen (RME) - General Chief Complaint: Shortness Of Breath Stated Complaint: SHORTNESS OF BREATH Time Seen by Provider: 10/23/20 16:19 Mode of Arrival: Ambulatory Information source: Patient Notes: Patient is a 40-year-old male comes emergency room complaining of increased shortness of breath with lightheadedness. Patient states he was here approximately a month ago with pneumonia and was tested negative for Covid at that time. Was sent home on antibiotics and states he got better. However he states over the past few days he has had increasing difficult time taking a deep breath especially when he is laying down. He denies any productive cough he denies any fevers at this time. Patient admits to smoking on a regular basis. There is family history of both cardiac and stroke. Mother had a stroke at age 42 and father had an MD at age 32. Patient also complains of having some visual disturbances over the past week and a half as well as tingling and numbness in his left arm for the past several days. Patient currently takes no medications. He denies any known contacts with coronavirus positive people. Patient states at 1 point he was on Metformin but stopped that also he is on lisinopril at one point time but stopped that as well. He currently does not have a primary care provider. Patient currently denies any chest pain only admits to the shortness of breath and the headache and light headedness. Physical examination: Patient is a well-nourished well-developed obese 40-year-old male in no apparent distress but does appear somewhat anxious. Cardiac: Patient is tachycardic on monitor to 102 bpm but no murmurs were auscultated. Blood pressure was 156/90. Lungs: Bilateral breath sounds with breath sounds decreased throughout no rhonchi rales or wheeze were heard on auscultation. Abdomen: Bowel sounds present 4 quads nontender to palpate. Neuro: Patient's NIH score currently is 0. This is performed in the sitting position in the triage room. I have greeted and performed a rapid initial assessment of this patient. A comprehensive ED assessment and evaluation of the patient, analysis of test results and completion of the medical decision making process will be conducted by additional ED providers. Dictation of this chart was performed using voice recognition software; therefore, there may be some unintended grammatical errors. - Related Data Allergies/Adverse Reactions: Penicillins Adverse Reaction (Verified 09/24/20 14:25) Past Medical History - Past Medical History Cardiac Medical History: Reports: Hx Hypertension Physical Exam - Vital signs Vitals: Temp Pulse Resp BP Pulse Ox 97.7 F 102 H 22 H 156/90 H 97 10/23/20 16:08 10/23/20 16:08 10/23/20 16:08 10/23/20 16:08 10/23/20 16:08 Course - Vital Signs Vital signs: Temp Pulse Resp BP Pulse Ox 97.7 F 102 H 22 H 156/90 H 97 10/23/20 16:08 10/23/20 16:08 10/23/20 16:08 10/23/20 16:08 10/23/20 16:08
--- NOTE | 2020-10-23 17:09 | RADIOLOGY REPORT (SQ) ---
EXAM DESCRIPTION: CHEST SINGLE VIEW IMAGES COMPLETED DATE/TIME: 10/23/2020 3:45 pm REASON FOR STUDY: sob COMPARISON: Chest radiograph, 09/24/2020. EXAM PARAMETERS: NUMBER OF VIEWS: One view. TECHNIQUE: Single frontal radiographic view of the chest acquired. RADIATION DOSE: NA LIMITATIONS: None. FINDINGS: LUNGS AND PLEURA: Improving aeration with mild persistent peripheral opacities in both yaa gs. No pleural effusion or pneumothorax. MEDIASTINUM AND HILAR STRUCTURES: No masses. Contour normal. HEART AND VASCULAR STRUCTURES: Heart normal in size. Normal vasculature. BONES: No acute findings. HARDWARE: None in the chest. OTHER: No other significant finding. IMPRESSION: Improving aeration in both lungs. TECHNICAL DOCUMENTATION: JOB ID: [id number] 2010 [employer]- All Rights Reserved Reading location - IP/workstation name: [email or web address]
[2020-10-23 17:59] LABS: ABSOLUTE BASOPHILS # (AUTO) 0.1 10^3/uL (0.0-0.2); ABSOLUTE EOSINOPHILS # (AUTO) 0.4 10^3/uL (0.0-0.6); ABSOLUTE LYMPHOCYTES (AUTO) 2.6 10^3/uL (0.5-4.7); ABSOLUTE MONOCYTES (AUTO) 0.7 10^3/uL (0.1-1.4); ABSOLUTE NEUT (AUTO) 6.3 10^3/uL (1.7-8.2); BASOPHILS % (AUTO) 0.5 % (0-2); EOSINOPHILS % (AUTO) 3.8 % (0-6); HEMATOCRIT 39.9 % (37.9-51.0); HEMOGLOBIN 13.7 g/dL (13.5-17.0); LYMPHOCYTES % (AUTO) 25.6 % (13-45); MEAN CORPUSCULAR HEMOGLOBIN 31.7 pg (27.0-33.4); MEAN CORPUSCULAR HGB CONC 34.4 g/dL (32.0-36.0); MEAN CORPUSCULAR VOLUME 92 fl (80-97); MONOCYTES % (AUTO) 7.4 % (3-13); PLATELET COUNT 321 10^3/uL (150-450); RED BLOOD COUNT 4.34 10^6/uL (4.35-5.55); RED CELL DISTRIBUTION WIDTH 14.2 % (11.5-14.0); SEGMENTED NEUTROPHILS % (AUTO) 62.7 % (42-78); TOTAL CELLS COUNTED % (AUTO) 100 %; WHITE BLOOD COUNT 10.1 10^3/uL (4.0-10.5)
[2020-10-23 18:07] LABS: APPEARANCE,URINE CLEAR; BILIRUBIN,URINE NEGATIVE (NEGATIVE); COLOR,URINE YELLOW; GLUCOSE, URINE NEGATIVE (NEGATIVE); KETONES,URINE NEGATIVE (NEGATIVE); LEUKOCYTE ESTERASE,URINE NEGATIVE (NEGATIVE); NITRITE,URINE NEGATIVE (NEGATIVE); PROTEIN,URINE NEGATIVE (NEGATIVE); URINE SPECIFIC GRAVITY 1.012; UROBILINOGEN,URINE NEGATIVE mg/dL (<2.0)
[2020-10-23 18:17] LABS: ALKALINE PHOSPHATASE 94 U/L (38-126); ANION GAP 7 (5-19); ASPARTATE AMINO TRANSFERASE 25 U/L (17-59); BILIRUBIN,DIRECT 0.1 mg/dL (0.0-0.4); BILIRUBIN,TOTAL 0.3 mg/dL (0.2-1.3); BLOOD UREA NITROGEN 12 mg/dL (7-20); CALCIUM 9.2 mg/dL (8.4-10.2); CARBON DIOXIDE 25 mmol/L (22-30); CHLORIDE 107 mmol/L (98-107); GLUCOSE 80 mg/dL (75-110); POTASSIUM 4.2 mmol/L (3.6-5.0); TOTAL PROTEIN 6.7 g/dL (6.3-8.2)
[2020-10-23 18:25] LABS: URINE AMPHETAMINES SCREEN NEGATIVE; URINE BARBITURATES SCREEN NEGATIVE; URINE BENZODIAZEPINES SCREEN NEGATIVE; URINE COCAINE SCREEN NEGATIVE; URINE MARIJUANA (THC) SCREEN NEGATIVE; URINE METHADONE SCREEN NEGATIVE; URINE PHENCYCLIDINE SCREEN NEGATIVE
[2020-10-23 18:36] LABS: NT PRO BNP 65 pg/mL (<125)
--- NOTE | 2020-10-23 18:43 | RADIOLOGY REPORT (SQ) ---
EXAM DESCRIPTION: CT HEAD WITHOUT IMAGES COMPLETED DATE/TIME: 10/23/2020 6:25 pm REASON FOR STUDY: headache, vision changes, left arm tingling COMPARISON: None. TECHNIQUE: Axial images acquired through the brain without intravenous contrast. Images reviewed wi th bone, brain and subdural windows. Additional sagittal and coronal reconstructions were generated. Images stored on PACS. All CT scanners at this facility use dose modulation, iterative reconstruction, and/or weight based d osing when appropriate to reduce radiation dose to as low as reasonably achievable (ALARA). [facility]: Dose Right [facility]: CareDose [facility]: Dose Right [facility]: Teradose 4D [facility]: Smart [employer] RADIATION DOSE: CT Rad equipment meets quality standard of care and radiation dose reduction techniq ues were employed. CTDIvol: 53.2 mGy. DLP: 964 mGy-cm. LIMITATIONS: None. FINDINGS: There is no acute intracranial hemorrhage, vascular territorial infarct, extra-axial fluid collection, mass effect or midline shift. The booth-white matter differentiation is preserved. The caliber of the ventricles is concordant with the degree of sulcation. There is no effacement of the cerebral sulci or basal subarachnoid cisterns. The right frontal sinus is partially opacified. The other paranasal sinuses and the mastoid air cell s are clear. The orbits and globes are intact. There is no fracture of the calvarium. IMPRESSION: 1. Partial opacification of the right frontal sinus. Correlation with clinical findings to exclude an acute sinusitis is recommended. 2. No acute intracranial abnormality. EVIDENCE OF ACUTE STROKE: NO. COMMENT: Quality ID # [id number]: Final reports with documentation of one or more dose reduction techniques (e.g., Automated exposure control, adjustment of the mA and/or kV according to patient size, use of iterative reconstruction technique) TECHNICAL DOCUMENTATION: JOB ID: [id number] 2010 [employer]- All Rights Reserved Reading location - IP/workstation name: [email or web address]
[2020-10-23 18:44] LABS: TROPONIN I < 0.012 ng/mL
[2020-10-23] MEDS ORDERED: AMLODIPINE BESYLATE 10 MG TABLET PO ONE (18:53)
[2020-10-23] MEDS ORDERED: LISINOPRIL 10 MG TABLET PO ONE (18:54)
--- NOTE | 2020-10-23 18:58 | ER Document Report ---
ED General - General Chief Complaint: Blood Pressure Problem Stated Complaint: SHORTNESS OF BREATH Time Seen by Provider: 10/23/20 16:19 Mode of Arrival: Ambulatory Notes: Patient presents to the ER for evaluation of headache with lightheadedness and some tingling in the left upper extremity and intermittent visual changes times approximately 2 to 3 weeks. He also admits to some shortness of breath but states he feels like this symptom only occurs when he gets anxious about his blood pressure. The patient states he does have a history of hypertension and diabetes but he has removed himself from his metoprolol, Norvasc, lisinopril. He does not currently have primary care. He states he lost weight and no longer needed these medications. He states he has now gained weight and feels as though he should be back on his medication for diabetes and hypertension. He denies chest pain. He denies nausea or vomiting. The patient states his symptoms seem to be worse when his blood pressure is elevated. These have been ongoing problems for several weeks. Nursing notes reviewed and past medical, social, and family histories reviewed and validated. - Related Data Allergies/Adverse Reactions: Penicillins Adverse Reaction (Verified 10/23/20 17:12) Past Medical History - General Information source: Patient - Social History Smoking Status: Current Every Day Smoker Cigarette use (# per day): Yes - 10 Chew tobacco use (# tins/day): No Smoking Education Provided: Yes Frequency of alcohol use: None Drug Abuse: None Lives with: Alone Family History: DM, Hypertension Patient has suicidal ideation: No Patient has homicidal ideation: No - Past Medical History Cardiac Medical History: Reports: Hx Hypertension Pulmonary Medical History: Reports: None EENT Medical History: Reports: None Neurological Medical History: Reports: None Endocrine Medical History: Reports: Hx Diabetes Mellitus Type 2 Renal/ Medical History: Reports: None Malignancy Medical History: Reports None GI Medical History: Reports: None Musculoskeletal Medical History: Reports None Skin Medical History: Reports None Psychiatric Medical History: Reports: None Traumatic Medical History: Reports: None Infectious Medical History: Reports: None Past Surgical History: Reports: None - Immunizations Immunizations up to date: Yes Hx Diphtheria, Pertussis, Tetanus Vaccination: Yes Review of Systems - Review of Systems Notes: Constitutional: Negative for fever. HENT: Negative for sore throat. Eyes: Negative for visual changes. Cardiovascular: Negative for chest pain. Respiratory: Negative for shortness of breath. Gastrointestinal: Negative for abdominal pain, vomiting or diarrhea. Genitourinary: Negative for dysuria. Musculoskeletal: Negative for back pain. Skin: Negative for rash. Neurological: Positive for headache. Positive for left fingers tingling. 10 point ROS negative except as marked above and in HPI. Physical Exam - Vital signs Vitals: Temp Pulse Resp BP Pulse Ox 97.7 F 102 H 22 H 156/90 H 97 10/23/20 16:08 10/23/20 16:08 10/23/20 16:08 10/23/20 16:08 10/23/20 16:08 - Notes Notes: CONSTITUTIONAL: Well appearing. No acute distress. SKIN: Warm, dry, and intact without rash EYES: Extraocular movements are grossly intact, clear conjunctiva HENT: Normocephalic, atraumatic, moist mucus membranes NECK: No obvious swelling, normal range of motion PULMONARY: Normal chest rise and fall. Breath sounds clear and equal bilaterally. No respiratory distress or stridor CARDIOVASCULAR: Regular rate. No murmurs, rubs, gallops. Distal extremities are warm and well perfused. ABDOMINAL: Soft, nontender NEUROLOGIC: Normal speech, moves all extremities. Cranial nerves are within normal limits. [employer] strength strong and equal in the upper extremities bilaterally. There is good strength and sensation in bilateral lower extremities. There is no arm or leg drift noted. MUSCULOSKELETAL: No gross deformities, atraumatic PSYCHIATRIC: Normal mood and affect Course - Re-evaluation Re-evalutation: 10/23/20 21:17 Rechecked patient who has responded well to treatment in the ER. His headache is resolved and he currently has no neurologic or respiratory symptoms. Discussed with patient: results, diagnosis, treatment plan, and need for follow-up. Return to the emergency department warnings were given. All questions and concerns were addressed. The plan is agreed with and understood. Patient is stable and ready for discharge. 10/23/20 21:19 - Vital Signs Vital signs: Temp Pulse Resp BP Pulse Ox 97.7 F 102 H 29 H 143/84 H 98 10/23/20 16:08 10/23/20 16:08 10/23/20 20:01 10/23/20 20:01 10/23/20 20:01 - Laboratory Result Diagrams: 10/23/20 17:38 10/23/20 17:38 Laboratory results interpreted by me: 10/23/20 10/23/20 17:38 17:38 RBC 4.34 L RDW 14.2 H Urine Blood SMALL H - Diagnostic Test Radiology reviewed: Reports reviewed Discharge - Discharge Clinical Impression: Hypertensive urgency Condition: Stable Disposition: HOME, SELF-CARE Instructions: High Blood Pressure ([facility]) Additional Instructions: Keep a close eye on your blood pressure. It is important that you obtain and follow-up with a primary care doctor in 1 to 2 weeks. Return to the emergency room if you develop new or worsening symptoms. Prescriptions: Lisinopril 20 mg PO DAILY #30 tablet Amlodipine Besylate [Norvasc 10 mg Tablet] 10 mg PO DAILY #30 tablet
--- NOTE | 2020-10-23 19:33 | EKG REPORT ---
SEVERITY:- NORMAL ECG - SINUS RHYTHM : Confirmed by: Lalo Troy MD 23-Oct-2020 19:32:51
[2020-10-23 20:16] VITALS: BP 143/84
== END 2020-10-23 21:47 | disposition home or self-care (01) ==
LOC: ER 15:58
DX: I16.0 Hypertensive urgency (principal); I10 Essential (primary) hypertension; T46.4X6A Underdosing of angiotensin-converting-enzyme inhibitors, initial encounter; T46.1X6A Underdosing of calcium-channel blockers, initial encounter; T44.7X6A Underdosing of beta-adrenoreceptor antagonists, initial encounter; Z91.128 Patient's intentional underdosing of medication regimen for other reason; E11.9 Type 2 diabetes mellitus without complications; R63.5 Abnormal weight gain; R06.02 Shortness of breath; R51.9 Headache, unspecified; R42 Dizziness and giddiness; R20.2 Paresthesia of skin; H53.9 Unspecified visual disturbance; F17.210 Nicotine dependence, cigarettes, uncomplicated; Z87.01 Personal history of pneumonia (recurrent); Z82.49 Family history of ischemic heart disease and other diseases of the circulatory system; Z82.3 Family history of stroke
CPT/HCPCS: 36415; 70450; 71045; 80053; 80307; 81001; 83880; 84484; 85025; 85379; 87086; 93005; 93010; 99285

== ENCOUNTER 2020-12-22 08:08 | Emergency (ER) | payer SELFPAY ==
[2020-12-22 08:15] VITALS: BP 153/92
--- NOTE | 2020-12-22 08:31 | ER Document Report ---
ED Cardiac - General Stated Complaint: SHORTNESS OF BREATH Time Seen by Provider: 12/22/20 08:27 Notes: CHIEF COMPLAINT: Intermittent chest pain and shortness of breath HPI: 40-year-old male with history of hypertension presenting with intermittent chest pain and shortness of breath. Patient states over the last several weeks he has had intermittent episodes of chest heaviness over the anterior chest without radiation. Over the last 3 weeks increasing shortness of breath. Patient believes he has sleep apnea that is untreated. Patient states that sometimes he feels like he has to gasp for a deep breath. Patient states that when the chest discomfort comes on it may last for several minutes then go away. Not specifically associated with exertional activities. Over the last 3 days the shortness of breath seems to accompany the chest pain. Patient states he has had a stress test in the past but it was several years ago he was never followed further by cardiology. Patient does report history of pneumonia in September and October 2020. Patient states this feels different than when he had pneumonia. He has had no fevers ROS: See HPI - all other systems were reviewed and are otherwise negative Constitutional: no fever Eyes: no drainage, no blurred vision ENT: no runny nose, no sore throat Cardiovascular: + chest pain Resp: + SOB, no cough GI: no vomiting, no diarrhea, no abdominal pain : no dysuria Integumentary: no rash Allergy: no hives Musculoskeletal: no extremity pain or swelling Neurological: no numbness/tingling, no weakness MEDICATIONS: I agree with the patient medications as charted by the RN. ALLERGIES: I agree with the allergies as charted by the RN. PAST MEDICAL HISTORY/PAST SURGICAL HISTORY: Reviewed and agree as charted by RN. SOCIAL HISTORY: Reviewed and agree as charted by RN. FAMILY HISTORY: No significant familial comorbid conditions directly related to patient complaint EXAM: Reviewed vital signs as charted by RN. CONSTITUTIONAL: Alert and oriented and responds appropriately to questions. Well-appearing; well-nourished HEAD: Normocephalic; atraumatic EYES: PERRL; Conjunctivae clear, sclerae non-icteric ENT: normal nose; no rhinorrhea; moist mucous membranes; pharynx without lesions noted, no uvula edema or deviation, no tonsillar hypertrophy, phonation normal NECK: Supple without meningismus; non-tender; no cervical lymphadenopathy, no masses CARD: RRR; no murmurs, no clicks, no rubs, no gallops; symmetric distal pulses RESP: Normal chest excursion without splinting or tachypnea; breath sounds clear and equal bilaterally; no wheezes, no rhonchi, no rales, pulse oximetry 98% on room air not hypoxic ABD/GI: Obese, normal bowel sounds; non-distended; soft, non-tender, no rebound, no guarding; no palpable organomegaly or masses. BACK: The back appears normal and is non-tender to palpation, there is no CVA tenderness EXT: Normal ROM in all joints; non-tender to palpation; no cyanosis, no effusions, no edema SKIN: Normal color for age and race; warm; dry; good turgor; no acute lesions noted NEURO: Moves all extremities equally; Motor and sensory function intact PSYCH: The patient's mood and manner are appropriate. Grooming and personal hygiene are appropriate. MDM: 40-year-old male presenting for shortness of breath over the last 3 days, intermittent episodes of chest discomfort over the last 3 to 4 weeks. States he never had a Covid test but was diagnosed with pneumonia in September and October. Patient does not become specifically dyspneic with speaking. Will obtain baseline EKG, screening cardiac labs will include D-dimer given his shortness of breath complaint. The patient was evaluated during the global COVID-19 pandemic and that diagnosis was suspected/considered upon their initial presentation. Their evaluation, treatment and testing was consistent with current guidelines for patients who present with complaints or symptoms that may be related to COVID-19 - Related Data Allergies/Adverse Reactions: Penicillins Adverse Reaction (Verified 10/23/20 17:12) Past Medical History - Social History Smoking Status: Unknown if Ever Smoked Family History: DM, Hypertension - Past Medical History Cardiac Medical History: Reports: Hx Hypertension Endocrine Medical History: Reports: Hx Diabetes Mellitus Type 2 - Immunizations Immunizations up to date: Yes Hx Diphtheria, Pertussis, Tetanus Vaccination: Yes Physical Exam - Vital signs Vitals: Temp Pulse Resp BP Pulse Ox 97.5 F 84 24 H 153/92 H 98 12/22/20 08:14 12/22/20 08:14 12/22/20 08:14 12/22/20 08:14 12/22/20 08:14 Course - Re-evaluation Re-evalutation: 12/22/20 08:46 EKG normal sinus rhythm with a ventricular rate of 84, PA 184, QT 352, QTc 417, normal EKG no other ectopy. Interpreted by emergency department physicians 12/22/20 09:40 Chest x-ray is negative. EKG is nonactionable. Troponin BNP and D-dimer are all negative. Will obtain second troponin at 3 hours. 12/22/20 09:44 I spoke with the patient again. He is now telling me that and about his sleep apnea. He states that he has no chest pain or shortness of breath when he seems to startle awake when he believes he has been apneic. This does not specifically suggest a cardiac component such as ACS today. He likely needs a sleep study does not have a primary care provider. If a second troponin is normal and he has no worsening symptoms I anticipate that he will be discharged to follow-up outpatient with both cardiology and with medicine to have a stress test and a sleep study scheduled. Patient is in agreement with this plan 12/22/20 13:44 Second troponin is normal. Plan to discharge patient to follow-up outpatient with cardiology and primary care for reevaluation, possible stress test, possible sleep apnea test - Vital Signs Vital signs: Temp Pulse Resp BP Pulse Ox 97.5 F 84 24 H 153/92 H 98 12/22/20 08:14 12/22/20 08:14 12/22/20 08:14 12/22/20 08:14 12/22/20 08:30 - Laboratory Results Result Diagrams: 12/22/20 08:44 12/22/20 08:44 Laboratory Results Interpreted: 12/22/20 12/22/20 12/22/20 08:44 08:44 09:40 RDW 14.9 H Anion Gap 2 L Glucose 141 H ALT 58 H Urine Blood SMALL H Critical Laboratory Results Reviewed: No Critical Results - Radiology Results Critical Radiology Results Reviewed: No Critical Results Discharge - Discharge Clinical Impression: Shortness of breath, Person under investigation for COVID-19 Chest pain Qualifiers: Chest pain type: unspecified Qualified Code(s): R07.9 - Chest pain, unspecified Condition: Stable Disposition: HOME, SELF-CARE Additional Instructions: Your lab work today did not suggest that you are having acute heart attack. It is likely important that you follow-up with cardiology for an outpatient stress test. Please call Dr. Power to schedule this. You also have concerns about sleep apnea. You will likely need an outpatient sleep study for this, you may follow-up with medicine referral for management of your high blood pressure as well as possibly getting a sleep study done. You are considered a person under investigation for COVID-19 at this time, self quarantine at home pending your test results. You should hear from someone in the hospital within 2 to 5 days about your test results Referrals: TWIN POWER MD [ACTIVE PROVISIONAL STAFF] - Follow up as needed GOYO VALVERDE MD [COMMUNITY BASED STAFF] - Follow up as needed
--- NOTE | 2020-12-22 08:51 | RADIOLOGY REPORT (SQ) ---
EXAM DESCRIPTION: CHEST SINGLE VIEW IMAGES COMPLETED DATE/TIME: 12/22/2020 8:39 am REASON FOR STUDY: sob COMPARISON: 10/23/2020. EXAM PARAMETERS: NUMBER OF VIEWS: One view. TECHNIQUE: Single frontal radiographic view of the chest acquired. RADIATION DOSE: NA LIMITATIONS: None. FINDINGS: LUNGS AND PLEURA: No opacities, masses or pneumothorax. No pleural effusion. MEDIASTINUM AND HILAR STRUCTURES: No masses. Contour normal. HEART AND VASCULAR STRUCTURES: Heart normal in size. Normal vasculature. BONES: No acute findings. HARDWARE: None in the chest. OTHER: No other significant finding. IMPRESSION: NO ACUTE RADIOGRAPHIC FINDING IN THE CHEST. TECHNICAL DOCUMENTATION: JOB ID: [id number] 2010 [email or web address]- All Rights Reserved Reading location - IP/workstation name: [email or web address]
--- NOTE | 2020-12-22 08:54 | EKG REPORT ---
SEVERITY:- NORMAL ECG - SINUS RHYTHM : Confirmed by: Lalo Troy MD 22-Dec-2020 08:53:43
[2020-12-22 09:13] LABS: ABSOLUTE BASOPHILS # (AUTO) 0.1 10^3/uL (0.0-0.2); ABSOLUTE EOSINOPHILS # (AUTO) 0.2 10^3/uL (0.0-0.6); ABSOLUTE LYMPHOCYTES (AUTO) 1.9 10^3/uL (0.5-4.7); ABSOLUTE MONOCYTES (AUTO) 0.5 10^3/uL (0.1-1.4); ABSOLUTE NEUT (AUTO) 3.9 10^3/uL (1.7-8.2); EOSINOPHILS % (AUTO) 3.3 % (0-6); HEMATOCRIT 43.3 % (37.9-51.0); HEMOGLOBIN 14.8 g/dL (13.5-17.0); LYMPHOCYTES % (AUTO) 28.8 % (13-45); MEAN CORPUSCULAR HEMOGLOBIN 31.5 pg (27.0-33.4); MEAN CORPUSCULAR HGB CONC 34.2 g/dL (32.0-36.0); MEAN CORPUSCULAR VOLUME 92 fl (80-97); MONOCYTES % (AUTO) 7.9 % (3-13); PLATELET COUNT 289 10^3/uL (150-450); RED BLOOD COUNT 4.69 10^6/uL (4.35-5.55); RED CELL DISTRIBUTION WIDTH 14.9 % (11.5-14.0); TOTAL CELLS COUNTED % (AUTO) 100 %; WHITE BLOOD COUNT 6.7 10^3/uL (4.0-10.5)
[2020-12-22 09:20] LABS: ALBUMIN 3.9 g/dL (3.5-5.0); ALKALINE PHOSPHATASE 81 U/L (38-126); ASPARTATE AMINO TRANSFERASE 30 U/L (17-59); BILIRUBIN,DIRECT 0.1 mg/dL (0.0-0.4); BILIRUBIN,TOTAL 0.4 mg/dL (0.2-1.3); BLOOD UREA NITROGEN 17 mg/dL (7-20); CALCIUM 9.4 mg/dL (8.4-10.2); CARBON DIOXIDE 29 mmol/L (22-30); CHLORIDE 106 mmol/L (98-107); GLUCOSE 141 mg/dL (75-110); POTASSIUM 4.5 mmol/L (3.6-5.0); TOTAL PROTEIN 6.6 g/dL (6.3-8.2)
[2020-12-22 09:21] LABS: ANION GAP 2 (5-19)
[2020-12-22 09:31] LABS: NT PRO BNP 14 pg/mL (<125)
[2020-12-22 09:32] LABS: TROPONIN I < 0.012 ng/mL
[2020-12-22 10:12] LABS: APPEARANCE,URINE CLEAR; BILIRUBIN,URINE NEGATIVE (NEGATIVE); COLOR,URINE YELLOW; GLUCOSE, URINE NEGATIVE (NEGATIVE); KETONES,URINE NEGATIVE (NEGATIVE); LEUKOCYTE ESTERASE,URINE NEGATIVE (NEGATIVE); NITRITE,URINE NEGATIVE (NEGATIVE); PROTEIN,URINE NEGATIVE (NEGATIVE); URINE SPECIFIC GRAVITY 1.016; UROBILINOGEN,URINE NEGATIVE mg/dL (<2.0)
--- OUTSIDE RECORDS SUMMARY | 2020-12-24 10:42 | XMS REPORT ---
:1980 Author Organization [facility] [place] [facility] [place] [address] [place] [address] Care Team Providers Name Role Phone Unavailable Unavailable Unavailable Allergies, Adverse Reactions, Alerts This patient has no known allergies or adverse reactions. Medications This patient has no known medications. Problems This patient has no known problems. Procedures This patient has no known procedures. Results Test Description Test Time Test Comments Text Results Atomic Results Result Comments SARS-CoV-2 RNA Resp Ql ELSA+probe 2020-09-26 00:00:00 Test Item Value Reference Range Comments SARS-CoV-2 RNA Resp Ql ELSA+probe Not detected [facility] Case ID: (test code = [id number]) [id number] SARS-CoV-2 RNA Resp Ql [id number] 00:00:00 Test Item Value Reference Range Comments SARS-CoV-2 RNA Resp Ql Not detected [facility] Case ELSA+probe (test code = ID: [id number]) Social History This patient has no known social history. Vital Signs This patient has no known vital signs.
== END 2020-12-22 14:04 | disposition home or self-care (01) ==
LOC: ER 08:08
DX: R06.02 Shortness of breath (principal); R07.9 Chest pain, unspecified; I10 Essential (primary) hypertension; E11.9 Type 2 diabetes mellitus without complications; Z20.828 Contact with and (suspected) exposure to other viral communicable diseases
CPT/HCPCS: 36415; 71045; 80053; 81001; 83880; 84484; 85025; 85379; 93005; 93010; 99285